=== PATIENT | male | born 1965 | race Caucasian/White ===

== ENCOUNTER 2023-09-06 13:06 | Emergency (ER) | payer OTHER, SELFPAY ==
[2023-09-06 13:09] VITALS: BP 153/80
[2023-09-06 13:51] VITALS: BMI 29.6
--- NOTE | 2023-09-06 15:14 | ED.GENMED ---
History of Present Illness
General
Chief Complaint: Back Pain
Source: patient
Exam Limitations: none
Time Seen by Provider: 09/06/23 15:01
Nursing documentation reviewed up to this point in time: agreed with
Travel History
Have you had any contact with someone who has COVID-19?: No
Do you have any symptoms of coronavirus? Fever > 100 degrees, chills, cough, shortness of breath, sore throat, loss of taste or smell, muscle aches, or headache?: No
History of Present Illness
History of Present Illness:
Patient to ED with complaint of right flank pain. States he had intermittent stabbing pain yesterday. Today pain is constant. Denies fever/chills/n/v/d. No prior history of same. Brought self to ED for eval.
Past History
Past History
ED Past Medical History: Hypercholesterolemia, Psychiatric (anxiety), Other (basal cell carinoma with MOHS procedure, liver laceration age 17) and Other (lumbar spine disc herniation, cervical spine fusion)
ED Past Surgical History: Orthopedic (L5/S1 disc replacement, MCL, cervical fusion, right shoulder)
Social History
Tobacco: Former smoker
Personal:
Living: with family
Employment: Employed
Family History
Family History: Other (non-contributory)
Review of Systems
Review of Systems
Allergies reviewed?: Yes
All Other Systems: ROS reviewed and negative except as documented in HPI and ROS
Constitutional: Reports no symptoms
EENT: Reports no symptoms
Respiratory: Reports no symptoms
Cardiac: Reports no symptoms
ABD/GI: Reports no symptoms
: Reports flank pain (right flank pain)
Musculoskeletal: Reports back pain (right flank pain)
Skin: Reports no symptoms
Neurological: Reports no symptoms
Psychiatric: Reports no symptoms
Phy Exam
General Physical Exam
General Presentation: well appearing and mild distress
General age: appears stated age
General Skin: warm
General Habitus: normal
General Mental: alert
Gastrointestinal Exam
Gastrointestinal Exam: normal bowel sounds, non tender, soft and no organomegaly
Musculoskeletal Exam
Musculoskeletal Exam: full ROM and neuro vasc intact
Skin Exam
Skin Exam: normal color, warm/dry and no rash
Psychiatric Exam
Psychiatric Exam: normal mood/affect
Course
Orders/Labs/Results
Orders:
Orders
09/06/23 15:13
Ketorolac [Toradol] 30 mg IV NOW STA
09/06/23 15:14
CT Abd/pel Without Iv Or Oral Urgent
Comment:
Reason For Exam: Right flank pain
09/06/23 15:33
Complete Blood Count/With Diff Urgent
Comprehensive Metabolic Panel Urgent
Urinalysis Reflex To Culture Urgent
Date Specimen was Collected: 09/06/23
Time Specimen was Collected: 15:31
Abnormal Lab Results
09/06/23
15:33
RBC 4.23 L 10^6/uL
(4.70-6.10)
Hct 38.1 L %
(39.0-52.0)
Glucose 102 H mg/dl
(70-99)
09/06/23 15:33
09/06/23 15:33
Vital Signs
Initial and Last Documented VS:
Initial Vital Signs
Temp Pulse Resp BP Pulse Ox
97.9 F 62 18 153/80 98
09/06/23 13:09 09/06/23 13:09 09/06/23 13:09 09/06/23 13:09 09/06/23 13:09
Last Documented Vital Signs
Temp Pulse Resp BP Pulse Ox
97.9 F 57 16 138/76 99
09/06/23 13:09 09/06/23 16:16 09/06/23 16:16 09/06/23 16:16 09/06/23 16:16
*Radiology
Radiology exam reviewed: radiology read reviewed
*Pulse Oximetry
Patient hypoxic: no
*Critical Care Note
Total Time (30-74mins, 75-104mins- exclusive of procedures): Not Applicable
Update Note
Update Note:
IMproved iwth IV toradol. CT results reviewed wtih him. He is discharged home, will follow up with PCP.
ED Attending Note
-
Portions of this chart may have been created with voice recognition software.� Occasional wrong word or��sound alike� substitutions may have occurred due to the inherent limitations of voice recognition software.
Discharge Plan
Departure
Patient Disposition: Home (Routine Discharge)
Date of Disposition: 09/06/23
Time of Disposition: 16:33
Patient with high blood pressure during this ER visit?: No
Condition: Good
Covid-19: Not Applicable
Discharge Problem:
Back pain
Instructions: Musculoskeletal Pain
Prescriptions:
New
ketorolac 10 mg tablet
10 mg PO Q8H PRN (Reason: Pain) Qty: 10 0RF
No Action
acetaminophen-codeine 1 TABLET tablet
1 - 2 tab PO Q4HPRN PRN (Reason: Mod-severe pain) Qty: 30 0RF
cefuroxime axetil 500 MG tablet
500 mg PO BID 7 Days Qty: 14 0RF
methylprednisolone [Medrol (Porfirio)] 4 MG tablets,dose pack
4 tab PO . DIRECT Qty: 1 0RF
Rx Instructions:
Start 09/03/2019
prednisone 50 MG tablet
50 mg PO DAILY Qty: 4 0RF
diazepam [Valium] 5 MG tablet
5 mg PO TID PRN (Reason: Pain, spasm) Qty: 12 0RF
Referrals:
Katty Kemp PA-C [Family Provider] - Follow up in 2-3 days
Interventions
Interventions:
*Risk Screen - Suicide Last Done: 09/06/23 13:09
*General Assessment Last Done: 09/06/23 13:09
*Neglect/Abuse Screening Last Done: 09/06/23 13:09
*ED COVID-19 Vaccine History Last Done: 09/06/23 13:09
ED-Musculoskeletal Assessment Last Done: 09/06/23 13:51
[2023-09-06] MEDS: TORADOL 30 MG IV (15:33)
[2023-09-06 15:36] VITALS: BP 138/76
[2023-09-06 15:49] LABS: % Basophils 0.6 % (0-2); % Eosinophils 3.8 % (0-6); % Immature Granulocytes 0.1 % (0-0.5); % Lymphocytes 31.6 % (20.5-51.1); % Monocytes 6.2 % (1.7-9.3); % Neutrophils 57.7 % (42.2-75.2); Absolute Basophils 0.1 10^3/uL (0-0.2); Absolute Eosinophils 0.3 10^3/uL (0-0.7); Absolute Lymphocytes 2.4 10^3/uL (1.2-3.4); Absolute Monocytes 0.5 10^3/uL (0.1-0.6); Absolute Neutrophils 4.4 10^3/uL (1.4-6.5); Hematocrit 38.1 % (39.0-52.0); Mean Corp Hgb Conc. 34.1 g/dL (33.0-37.0); Mean Corpuscular Hgb 30.7 pg (27.0-31.0); Mean Corpuscular Volume 90.1 fL (80.0-94.0); Mean Platelet Volume 9.7 fL (7.4-10.4); Nucleated Red Blood Cells % 0 % (-); Platelet Count 239 10^3/uL (130-400); Red Blood Cell Count 4.23 10^6/uL (4.70-6.10); Red Cell Dist. Width 13.3 % (11.5-14.5); White Blood Cell Count 7.7 10^3/uL (4.8-10.8)
[2023-09-06 15:53] LABS: Urine Albumin Negative (Neg - Trace); Urine Bilirubin Negative (Negative); Urine Character Clear (Clear); Urine Color Yellow; Urine Glucose Negative (Negative); Urine Ketone Negative (Negative); Urine Leukocyte Negative (Negative); Urine Nitrite Negative (Negative); Urine Occult Blood Negative (Negative); Urine Urobilinogen Negative (Neg - 1+)
[2023-09-06 16:12] LABS: ALT (SGPT) 36 U/L (0-50); AST (SGOT) 36 U/L (17-59); Albumin 3.8 g/dl (3.5-5.0); Alkaline Phosphatase 97 U/L (38-126); Blood Urea Nitrogen 17 mg/dl (9-20); Calcium 9.3 mg/dl (8.4-10.2); Carbon Dioxide 26 mmol/L (22-30); Chloride 103 mmol/L (98-107); Estimated Creatinine Clearance > 125 ml/min; Glucose 102 mg/dl (70-99); Potassium 3.9 mmol/L (3.5-5.1); Sodium 138 mmol/L (135-145); Total Bilirubin 0.5 mg/dl (0.2-1.3); Total Protein 6.5 g/dl (6.3-8.2); eGFR > 60.00
[2023-09-06 16:16] VITALS: BP 138/76
== END 2023-09-06 17:06 | disposition home or self-care (01) ==
LOC: EMR 13:06
PROVIDERS: Nurse Practitioner; EMERGENCY PHYSICIAN Emergency Medicine; FAMILY PHYSICIAN Physician Assistant Medical
DX: R10.9 Unspecified abdominal pain (principal); E78.00 Pure hypercholesterolemia, unspecified; F41.9 Anxiety disorder, unspecified; Z87.891 Personal history of nicotine dependence
CPT/HCPCS: 99284; 96374; 74176; 80053; 81003; 85025

== ENCOUNTER → 2024-03-10 09:33 | Outpatient (REF) | payer OTHER, SELFPAY | LOC: DHSLP 09:33 | PROVIDERS: ATTENDING PHYSICIAN Internal Medicine; FAMILY PHYSICIAN Physician Assistant Medical | DX: G47.33 Obstructive sleep apnea (adult) (pediatric) (principal) | CPT/HCPCS: 95800 ==

== ENCOUNTER → 2024-08-31 07:34 | Outpatient (REF) | payer OTHER, SELFPAY | LOC: HWRAD 07:34 | PROVIDERS: ATTENDING PHYSICIAN Otolaryngology; FAMILY PHYSICIAN Physician Assistant Medical | DX: J32.0 Chronic maxillary sinusitis (principal) | CPT/HCPCS: 70486 ==

== ENCOUNTER 2025-06-21 13:10 | Emergency (ER) | payer OTHER, SELFPAY ==
[2025-06-21 13:18] VITALS: BP 179/83
--- NOTE | 2025-06-21 14:39 | ED.GENMED ---
History of Present Illness
<Kavita Payne MD, Resident - Last Filed: 06/22/25 06:03>
General
Chief Complaint: Chest Pain
Source: patient
Exam Limitations: none
Time Seen by Provider: 06/21/25 14:25
Nursing documentation reviewed up to this point in time: agreed with
History of Present Illness
History of Present Illness:
59yo M with a hx of HTN, chronic back pain, and adrenal mass who presents with subacute sternal discomfort and bilateral UE paresthesias.
Pt reports that yesterday afternoon he began to experience discomfort in the sternum area that radiated to his back. Was not made any worse or better with activity. Denies any n/v or f/c. This coincided with numbness/tingling in bilateral UEs that
occurred sporadically, and lasted for a few seconds each at different times. The arm paresthesias are not positional; denies any weakness in bilat UE. Denies any cough or SOB. Within the past yr, he was dx with HTN and was started in [facility]. Also is
being worked up for mass on adrenal gland, currently with dexamethasone suppression test. Pt also has chronic back pain, for which he takes tylenol and methocarbamol. Endorses anxiety with hx of panic attacks that have felt similar to this
experience. Takes sertraline; endorses feeling very stressed by work currently. Has a remote smoking hx, has not smoked since 32yo. Had a cardiac stress test in 2017 which was unremarkable. Denies substance use.
Past History
<Kavita Payne MD, Resident - Last Filed: 06/22/25 06:03>
Past History
ED Past Medical History: Hypercholesterolemia, Psychiatric (anxiety), Other (basal cell carinoma with MOHS procedure, liver laceration age 17) and Other (lumbar spine disc herniation, cervical spine fusion)
ED Past Surgical History: Orthopedic (L5/S1 disc replacement, MCL, cervical fusion, right shoulder)
Social History
Tobacco: Former smoker
Personal:
Living: with family
Employment: Employed
Family History
Family History: Other (non-contributory)
Review of Systems
<Kavita Payne MD, Resident - Last Filed: 06/22/25 06:03>
Review of Systems
All Other Systems: ROS reviewed and negative except as documented in HPI and ROS
Constitutional: Reports other (trouble losing weight)
EENT: Reports no symptoms
Respiratory: Reports no symptoms
Cardiac: Reports chest pain
ABD/GI: Reports no symptoms
: Reports no symptoms
Musculoskeletal: Reports no symptoms
Skin: Reports no symptoms
Neurological: Reports numbness (paresthesias in bilat UEs)
Psychiatric: Reports anxiety
Phy Exam
<Kavita Payne MD, Resident - Last Filed: 06/22/25 06:03>
General Physical Exam
General Presentation: well appearing and no apparent distress
General age: appears stated age
General Skin: warm and dry
General Habitus: normal
General Mental: alert
Cardiovascular Exam
Cardiovascular Exam: no edema and occasionally irregular
Heart Sounds: normal
Pulmonary Exam
Pulmonary Exam: lungs clear and no respiratory distress
Gastrointestinal Exam
Gastrointestinal Exam: non tender, soft and non distended
Neurological Exam
Neurological Exam: alert, oriented x3, no motor deficits and no sensory deficits
Musculoskeletal Exam
Musculoskeletal Exam: full ROM and edema (very mild edema in bilat LEs)
Skin Exam
Skin Exam: normal color
Psychiatric Exam
Psychiatric Exam: anxious
Scores
<Kavita Payne MD, Resident - Last Filed: 06/22/25 06:03>
Heart Score for Chest Pain Patients
STEMI patient?: Not applicable
Course
<Kavita Payne MD, Resident - Last Filed: 06/22/25 06:03>
Orders/Labs/Results
Orders:
Orders
06/21/25 13:11
Electrocardiogram (*1) Urgent
Reason for Study: Chest Pain
EKG- Treatment ONCE
06/21/25 14:57
CR Chest - 2 Views Urgent
Comment:
Reason For Exam: chest pain
06/21/25 15:18
Complete Blood Count/With Diff Urgent
Comprehensive Metabolic Panel Urgent
TSH Reflex To Free T4 Stat
Troponin I Urgent
06/21/25 15:54
Add On- LAB Stat
Tests Added?: TSH reflex to Free T4
Abnormal Lab Results
06/21/25
15:18
RBC 4.42 L 10^6/uL
(4.70-6.10)
Carbon Dioxide 33 H mmol/L
(22-30)
Glucose 104 H mg/dl
(70-99)
ALT 107 H U/L
(0-50)
06/21/25 15:18
06/21/25 15:18
Vital Signs
Initial and Last Documented VS:
Initial Vital Signs
Temp Pulse Resp BP Pulse Ox
98.1 F 75 18 179/83 98
06/21/25 13:18 06/21/25 13:18 06/21/25 13:18 06/21/25 13:18 06/21/25 13:18
Last Documented Vital Signs
Temp Pulse Resp BP Pulse Ox
98.1 F 65 11 132/70 95
06/21/25 13:18 06/21/25 16:30 06/21/25 16:30 06/21/25 16:00 06/21/25 16:30
<Kavin Chavez MD - Last Filed: 06/21/25 16:38>
Orders/Labs/Results
Orders:
Orders
06/21/25 13:11
Electrocardiogram (*1) Urgent
Reason for Study: Chest Pain
EKG- Treatment ONCE
06/21/25 14:57
CR Chest - 2 Views Urgent
Comment:
Reason For Exam: chest pain
06/21/25 15:18
Complete Blood Count/With Diff Urgent
Comprehensive Metabolic Panel Urgent
TSH Reflex To Free T4 Stat
Troponin I Urgent
06/21/25 15:54
Add On- LAB Stat
Tests Added?: TSH reflex to Free T4
Abnormal Lab Results
06/21/25
15:18
RBC 4.42 L 10^6/uL
(4.70-6.10)
Carbon Dioxide 33 H mmol/L
(22-30)
Glucose 104 H mg/dl
(70-99)
ALT 107 H U/L
(0-50)
06/21/25 15:18
06/21/25 15:18
Vital Signs
Initial and Last Documented VS:
Initial Vital Signs
Temp Pulse Resp BP Pulse Ox
98.1 F 75 18 179/83 98
06/21/25 13:18 06/21/25 13:18 06/21/25 13:18 06/21/25 13:18 06/21/25 13:18
Last Documented Vital Signs
Temp Pulse Resp BP Pulse Ox
98.1 F 65 11 132/70 95
06/21/25 13:18 06/21/25 16:30 06/21/25 16:30 06/21/25 16:00 06/21/25 16:30
<Kavita Payne MD, Resident - Last Filed: 06/22/25 06:03>
MDM/Problems Addressed
Differential Diagnosis Includes:
Ddx:
Panic attack
Symptomatic HTN
Arrhythmia, a fib
KS
Aortic dissection
Electrolyte abnormality
MDM/Problems Addressed:
- EKG
- CXR 2 views
- CBC, CMP
- TSH w reflex to T4
- Troponin
- Monitor BP (trending down since presentation)
<Kavita Payne MD, Resident - Last Filed: 06/22/25 06:03>
*Pulse Oximetry
SaO2: 98
Oxygen Mode of Delivery: Room air
Patient hypoxic: no
*Critical Care Note
Total Time (30-74mins, 75-104mins- exclusive of procedures): Not Applicable
ED Attending Note
<Kavita Payne MD, Resident - Last Filed: 06/22/25 06:03>
-
Portions of this chart may have been created with voice recognition software.� Occasional wrong word or��sound alike� substitutions may have occurred due to the inherent limitations of voice recognition software.
<Kavin Chavez MD - Last Filed: 06/21/25 16:38>
ED Attending Note
Patient seen and examined by attending physician: Yes
ED Attending Note:
Patient with history of hypertension, hypercholesterolemia, and sleep apnea, presents to ED secondary to intermittent chest pain since last night. Chest pain described as sharp, intermittent, lasting few minutes, with associated bilateral arm
tingling sensation, as well as back pain. However, at the time evaluation ED, patient states that he does not have any symptoms. Of note, patient states that he has had number of similar symptoms in the past, and has been evaluated by wood heel back liner
over the years, including stress echocardiogram which was performed in 2017. In addition, patient states that he is under heavy emotional stress at this time, and is wondering whether or not that may be contributing to his symptoms. Denies recent
travel or surgery. Denies leg pain or swelling. Denies family history of early heart disease. Denies family history of blood clots. Denies recent injury. Denies recent change in activities. Denies recent change in medications or diet.
Physical Exam
General: no apparent distress, not acutely ill. afebrile
Head: nc/at. eomi
Neck: supple. no meningeal signs.
Heart: s1/s2 regular rate and rhythm
Lungs: no acute respiratory distress. clear bilaterally
Abdomen: normal bowel sounds. not tender.
Neuro: alert and oriented x 3. no focal neurological deficits
Skin: no rash
Psychiatric: well kept. interactive and cooperative
Extremities: no edema. no calf tenderness.
Patient with an unremarkable workup in ED, including blood work, EKG, and chest x-ray. Otherwise, patient is afebrile, hemodynamically stable, and is without any symptoms, at time of discharge. Despite negative workup, patient does have
significant risk factors for cardiac disease. As such, strongly recommended outpatient follow-up. Patient states that he is part of [facility], as such, will contact PCP for referral to cardiology as an outpatient.
Discharge Plan
Departure
Patient Disposition: Home (Routine Discharge)
Date of Disposition: 06/21/25
Time of Disposition: 16:37
Patient with high blood pressure during this ER visit?: Yes
Condition: Good
Discharge Problem:
Chest pain
Instructions: Chest Pain NON-[facility] [employer] Follow Up
Prescriptions:
No Action
acetaminophen-codeine 1 TABLET tablet
1 - 2 tab PO Q4HPRN PRN (Reason: Mod-severe pain) Qty: 30 0RF
cefuroxime axetil 500 MG tablet
500 mg PO BID 7 Days Qty: 14 0RF
methylprednisolone [Medrol (Porfirio)] 4 MG tablets,dose pack
4 tab PO . DIRECT Qty: 1 0RF
Rx Instructions:
Start 09/03/2019
prednisone 50 MG tablet
50 mg PO DAILY Qty: 4 0RF
diazepam [Valium] 5 MG tablet
5 mg PO TID PRN (Reason: Pain, spasm) Qty: 12 0RF
ketorolac 10 mg tablet
10 mg PO Q8H PRN (Reason: Pain) Qty: 10 0RF
Referrals:
King Polanco MD [Active, Cardiology]
UNKNOWN - PT DOES,NOT KNOW [Family Provider]
Activity Restrictions/Additional Instructions:
As discussed, please follow-up with your primary care physician and/or referred [facility] heel back liner for further evaluation and treatment. Please consider return to ED with worsening symptoms.
Interventions
Interventions:
*Risk Screen - Suicide Last Done: 06/21/25 13:12
*General Assessment Last Done: 06/21/25 13:18
*Neglect/Abuse Screening Last Done: 06/21/25 13:18
*ED COVID-19 Vaccine History Last Done: 06/21/25 17:40
*ED Influenza Vaccine History Last Done: 06/21/25 17:40
[facility] Fall Risk Assessment Tool Last Done: 06/21/25 16:57
*Nursing Disposition Last Done: 06/21/25 17:40
ED- Cardiac Assessment Last Done: 06/21/25 14:00
Discharge Date and Time
Discharge Date/Time: 06/21/25 17:00
Print Language: CAMEROONIAN
[2025-06-21 15:20] VITALS: BMI 30.3
[2025-06-21 15:26] LABS: Hematocrit 39.9 % (39.0-52.0); Hemoglobin 13.3 g/dL (13.0-18.0); Mean Corp Hgb Conc. 33.3 g/dL (33.0-37.0); Mean Corpuscular Volume 90.3 fL (80.0-94.0); Nucleated Red Blood Cells % 0 % (-); Platelet Count 248 10^3/uL (130-400); Red Cell Dist. Width 13.4 % (11.5-14.5)
[2025-06-21 15:40] LABS: ALT (SGPT) 107 U/L (0-50); AST (SGOT) 49 U/L (17-59); Albumin 4.7 g/dl (3.5-5.0); Alkaline Phosphatase 109 U/L (38-126); Blood Urea Nitrogen 17 mg/dl (9-20); Calcium 9.5 mg/dl (8.4-10.2); Carbon Dioxide 33 mmol/L (22-30); Chloride 99 mmol/L (98-107); Estimated Creatinine Clearance > 125 ml/min; Glucose 104 mg/dl (70-99); Potassium 3.6 mmol/L (3.5-5.1); Sodium 138 mmol/L (135-145); Total Protein 7.5 g/dl (6.3-8.2); eGFR > 60.00
[2025-06-21 15:41] VITALS: BP 136/79
[2025-06-21 15:51] LABS: Troponin I < 0.012 ng/ml
[2025-06-21 16:00] VITALS: BP 132/70
== END 2025-06-21 17:00 | disposition home or self-care (01) ==
LOC: EMR 13:10
PROVIDERS: EMERGENCY PHYSICIAN Emergency Medicine
DX: R07.89 Other chest pain (principal); R20.2 Paresthesia of skin; G47.30 Sleep apnea, unspecified; E78.00 Pure hypercholesterolemia, unspecified; I10 Essential (primary) hypertension; G89.29 Other chronic pain; Z98.1 Arthrodesis status; Z87.891 Personal history of nicotine dependence
CPT/HCPCS: 99285; 71046; 80053; 84443; 84484; 85025; 93005